=== PATIENT | female | born 1985 | race Caucasian/White ===

== ENCOUNTER → 2016-09-02 | Outpatient (REF) | payer BC ==
[~2016-09-02] MED LIST: IBUP80TA PO; LEVO175T PO; PERCOCET PO; SYNT137T7 PO; ZOLO100T PO; ZOLO50TA PO
[2016-09-02 17:24] LABS: THYROID PEROXIDASE ANTIBODY 177.5 U/ML (<60.0)
== END ==
LOC: M LAB REF 16:27
PROVIDERS: ATTEND Nurse Practitioner Family
DX: E03.9 Hypothyroidism, unspecified (principal)

== ENCOUNTER → 2019-09-11 | Outpatient (CLI) | payer BC ==
[~2019-09-11] MED LIST changes: +METHACHOLINE KIT (J7674) INH ONE; +OXYC1TAB23 PO; -PERCOCET PO
--- NOTE | 2019-09-11 09:23 | PFTRPT ---
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 Review Status: Not Reviewed Pre-Bronch Post-Bronch Pred Actual %Pred Actual %Chng SPIROMETRY FVC (L) 4.00 4.09 102 3.90 -4 FEV1 (L) 3.31 3.48 105 3.28 -5 FEV1/FVC (%) 83 85 102 84 -1 FEF 25% (L/sec) 5.80 6.41 110 6.08 -5 FEF 50% (L/sec) 4.37 4.81 109 4.11 -14 FEF 75% (L/sec) 1.79 1.95 108 1.28 -34 FEF 25-75% (L/sec) 3.43 4.09 119 3.26 -20 FEF Max (L/sec) 7.32 6.43 87 6.60 2 FIVC (L) 4.10 3.86 -5 FIF 50% (L/sec) 4.93 4.15 84 3.05 -26 FIF Max (L/sec) 4.44 3.17 -28 Expiratory Time (sec) 6.56 6.48 -1 Back Extrap Vol (L) 0.19 0.08 -56 Time To FEFmax (sec) 0.146 0.087 -40
== END ==
LOC: M CARPUL 08:11
PROVIDERS: ATTEND Internal Medicine
DX: R06.02 Shortness of breath (principal)
CPT/HCPCS: 94070; J7674

== ENCOUNTER → 2019-10-04 | Outpatient (REF) | payer BC ==
[~2019-10-04] MED LIST changes: -METHACHOLINE KIT (J7674) INH ONE
== END ==
LOC: M LAB REF 16:48
PROVIDERS: ATTEND Registered Nurse
DX: N39.0 Urinary tract infection, site not specified (principal)

== ENCOUNTER → 2019-11-23 | Outpatient (REF) | payer BC | LOC: M LAB REF 16:17 | PROVIDERS: ATTEND Internal Medicine | DX: N39.0 Urinary tract infection, site not specified (principal) ==

== ENCOUNTER → 2020-03-22 | Outpatient (REF) | payer BC | LOC: M LAB REF 07:15 | PROVIDERS: ATTEND Internal Medicine | DX: R30.0 Dysuria (principal) ==

== ENCOUNTER → 2020-06-12 | Outpatient (REF) | payer BC | LOC: M LAB REF 11:09 | PROVIDERS: ATTEND Internal Medicine | DX: M25.50 Pain in unspecified joint (principal) ==

== ENCOUNTER → 2020-09-02 | Outpatient (CLI) | payer BC ==
[2020-09-02 11:06] LABS: BASO % 0.7 % (0.0-1.0); EOS # 0.2 10^3/uL (0.0-0.5); EOS % 3.1 % (0.0-3.0); HEMATOCRIT 41.4 % (36.0-47.0); HEMOGLOBIN 13.7 g/dl (12.0-15.5); LYMPH # 1.3 10^3/uL (1.5-5.0); LYMPH % 22.4 % (24.0-44.0); MEAN CORPUSCULAR HEMOGLOBIN 29.8 pg (27.0-33.0); MEAN CORPUSCULAR HGB CONC 33.1 g/dl (32.0-36.5); MONO # 0.4 10^3/uL (0.0-0.8); MONO % 7.1 % (0.0-5.0); NEUTROPHILS # 3.9 10^3/uL (1.5-8.5); NEUTROPHILS % 66.2 % (36.0-66.0); PLATELET COUNT, AUTOMATED 218 10^3/uL (150-450); WHITE BLOOD COUNT 5.9 10^3/uL (4.0-10.0)
[2020-09-02 11:30] LABS: HEMOGLOBIN A1c 4.8 %
[2020-09-02 11:38] LABS: ALBUMIN 3.8 GM/DL (3.2-5.2); ALT/SGPT 30 U/L (12-78); BILIRUBIN,TOTAL 0.3 MG/DL (0.2-1.0); BLOOD UREA NITROGEN 15 MG/DL (7-18); CALCIUM LEVEL 9.2 MG/DL (8.5-10.1); CARBON DIOXIDE LEVEL 28 MEQ/L (21-32); CHLORIDE LEVEL 104 MEQ/L (98-107); CHOLESTEROL LEVEL 171 MG/DL (<200); CHOLESTEROL RISK RATIO 3.717 (<5); FERRITIN 50 NG/ML (8-252); FREE T4 1.22 NG/DL (0.76-1.46); GLOMERULAR FILTRATION RATE > 60.0 (>60); GLUCOSE, FASTING 105 MG/DL (70-100); HDL CHOLESTEROL 46 MG/DL (>40); IRON (FE) 74 UG/DL (50-170); LDL CHOLESTEROL 84 MG/DL (<100); NON-HDL-C 125 MG/DL; PERCENT SATURATION 23.9 % (13.2-45.0); POTASSIUM SERUM 4.5 MEQ/L (3.5-5.1); SODIUM LEVEL 140 MEQ/L (136-145); TOTAL IRON BINDING CAPACITY 309 UG/DL (250-450); TOTAL PROTEIN 6.9 GM/DL (6.4-8.2); TRIGLYCERIDES LEVEL 206 MG/DL (<150)
[2020-09-02 11:45] LABS: TOTAL 25(OH) VITAMIN D 14.4 NG/ML (30.0-100.0)
[2020-09-02 11:46] LABS: TOTAL T3 120.7 NG/DL (60.0-181.0); VITAMIN B12 LEVEL 605 PG/ML (247-911)
--- NOTE | 2020-09-02 18:05 | REP ---
INDICATION: MORBID (SEVERE) OBESITY, LAB 1ST EKG 2ND XR 3RD. COMPARISON: Comparison chest x-ray July 05, 2013. TECHNIQUE: Two views.. FINDINGS: The lungs are well inflated and free of infiltrate. The pleural angles are sharp. The heart size is normal. Pulmonary vasculature is not increased. No significant bony abnormality is seen. IMPRESSION: Negative chest x-ray. <Electronically signed by Yaakov Melendez > 09/02/20 [id number]
--- NOTE | 2020-09-03 16:08 | ECGEPIP ---
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
== END ==
LOC: M LAB 10:25
PROVIDERS: ATTEND Nurse Practitioner Women's Health
DX: E66.01 Morbid (severe) obesity due to excess calories (principal); J45.909 Unspecified asthma, uncomplicated; E03.9 Hypothyroidism, unspecified

== ENCOUNTER 2020-09-04 09:28 | Outpatient (RCR) | payer BC | END 2020-09-08 | LOC: M PT 09:28 | PROVIDERS: ATTEND Orthopaedic Surgery Sports Medicine | DX: M77.11 Lateral epicondylitis, right elbow (principal) ==

== ENCOUNTER 2020-10-02 14:30 | Outpatient (RCR) | payer BC | END 2020-10-06 | LOC: M PT 14:30 | PROVIDERS: ATTEND Orthopaedic Surgery Sports Medicine | DX: M77.11 Lateral epicondylitis, right elbow (principal) ==

== ENCOUNTER → 2020-12-07 | Outpatient (CLI) | payer BC ==
--- NOTE | 2020-12-08 16:31 | REPVR ---
PROCEDURE INFORMATION: Exam: MR Right Upper Extremity Joint Without Contrast; Elbow Exam date and time: 12/07/2020 3:36 PM Age: 35 years old Clinical indication: Right; Patient HX: RT elbow pain; Additional info: Lateral epicondylitis; RT elbow TECHNIQUE: Imaging protocol: MR of the Right upper extremity without contrast. Exam focused on the elbow. COMPARISON: No relevant prior studies available. FINDINGS: The examination is limited by motion degradation and the patient's body habitus. There is mild fraying at the humeral attachment of the radial collateral ligament. The ulnar collateral ligament is intact. There is moderate tendinopathy and partial-thickness tearing at the common extensor tendon origin with associated soft tissue swelling. The common flexor tendon is normal in appearance. The biceps and brachialis tendons are intact. There is no evidence of acute fracture or dislocation. Bone marrow signal is normal. Alignment is anatomic. There is a trace elbow joint effusion. The soft tissues are unremarkable. IMPRESSION: 1. Lateral epicondylitis, as described above. 2. Additional findings, as above. Electronically signed by: Jesse Shah On 12/08/2020 16:31:27 PM
== END ==
LOC: M RAD 14:23
PROVIDERS: ATTEND Orthopaedic Surgery Sports Medicine
DX: M77.11 Lateral epicondylitis, right elbow (principal)

== ENCOUNTER → 2021-05-26 | Outpatient (REF) | payer BC | LOC: M LAB REF 16:37 | PROVIDERS: ATTEND Internal Medicine | DX: Z98.84 Bariatric surgery status (principal) ==

== ENCOUNTER → 2021-10-07 | Outpatient (REF) | payer BC | LOC: M LAB REF 12:40 | PROVIDERS: ATTEND Internal Medicine | DX: F33.1 Major depressive disorder, recurrent, moderate (principal); Z98.84 Bariatric surgery status ==

== ENCOUNTER → 2023-11-23 | Outpatient (REF) | payer OTHER ==
[2023-11-23 14:37] LABS: FERRITIN 17.6 NG/ML (7.3-270.7)
== END ==
LOC: M LAB REF 13:27
PROVIDERS: ATTEND Internal Medicine
DX: Z98.84 Bariatric surgery status (principal)

== ENCOUNTER → 2023-11-26 | Outpatient (REF) | payer OTHER ==
[2023-11-26 18:27] LABS: AMORPHOUS SEDIMENT SMALL (NEGATIVE); APPEARANCE, URINE TURBID (CLEAR); BACTERIA, URINE AUTO NEGATIVE (NEGATIVE); BILIRUBIN, URINE AUTO NEGATIVE (NEGATIVE); BLOOD, URINE BLOOD 1+ (NEGATIVE); COLOR, URINE YELLOW (YELLOW); GLUCOSE, URINE (UA) AUTO NEGATIVE (NEGATIVE); KETONE, URINE AUTO NEGATIVE (NEGATIVE); LEUKOCYTE ESTERASE, URINE AUTO 3+ (NEGATIVE); MUCUS, URINE SMALL (NEGATIVE); NITRITE, URINE AUTO NEGATIVE (NEGATIVE); PROTEIN, URINE AUTO NEGATIVE (NEGATIVE); RBC, URINE AUTO 0 /HPF (0-3); SPECIFIC GRAVITY URINE AUTO 1.027 (1.002-1.035); SQUAMOUS EPITHELIAL CELL UR AU 7 /HPF (0-6); UROBILINOGEN, URINE AUTO 0.2 mg/dL (0.0-2.0); WBC, URINE AUTO 45 /HPF (0-3)
== END ==
LOC: M SMT 16:46
PROVIDERS: ATTEND Nurse Practitioner Family
DX: R30.0 Dysuria (principal)

== ENCOUNTER → 2023-12-10 | Outpatient (CLI) | payer OTHER | LOC: M RAD 15:57 | PROVIDERS: ATTEND Internal Medicine | DX: E03.9 Hypothyroidism, unspecified (principal) ==

== ENCOUNTER → 2024-05-26 | Outpatient (CLI) | payer OTHER ==
[2024-05-26 18:47] LABS: C REACTIVE PROTEIN QUANTITATIV < 0.40 MG/DL (<1.0)
[2024-05-27 11:02] LABS: THYROID PEROXIDASE ANTIBODY 136 U/ML (<60.0)
== END ==
LOC: M RAD 12:25
PROVIDERS: ATTEND Internal Medicine
DX: R22.32 Localized swelling, mass and lump, left upper limb (principal); E03.9 Hypothyroidism, unspecified

== ENCOUNTER → 2024-06-13 | Outpatient (REF) | payer OTHER | LOC: M LAB REF 12:17 | PROVIDERS: ATTEND Internal Medicine | DX: E66.01 Morbid (severe) obesity due to excess calories (principal) ==

== ENCOUNTER → 2024-07-13 | Outpatient (CLI) | payer OTHER | LOC: M SOG 07:53 | PROVIDERS: ATTEND Physician Assistant | DX: M25.522 Pain in left elbow (principal) ==

== ENCOUNTER → 2024-09-22 | Outpatient (REF) | payer OTHER, BC ==
[2024-09-22 15:30] LABS: APPEARANCE, URINE CLOUDY (CLEAR); BACTERIA, URINE AUTO 1+ (NEGATIVE); BILIRUBIN, URINE AUTO NEGATIVE (NEGATIVE); BLOOD, URINE BLOOD NEGATIVE (NEGATIVE); COLOR, URINE AMBER (YELLOW); GLUCOSE, URINE (UA) AUTO NEGATIVE (NEGATIVE); KETONE, URINE AUTO NEGATIVE (NEGATIVE); LEUKOCYTE ESTERASE, URINE AUTO 3+ (NEGATIVE); MUCUS, URINE SMALL (NEGATIVE); NITRITE, URINE AUTO POSITIVE (NEGATIVE); PROTEIN, URINE AUTO NEGATIVE (NEGATIVE); RBC, URINE AUTO 2 /HPF (0-3); SPECIFIC GRAVITY URINE AUTO 1.027 (1.002-1.035); SQUAMOUS EPITHELIAL CELL UR AU 14 /HPF (0-6); UROBILINOGEN, URINE AUTO 0.2 mg/dL (0.0-2.0); WBC, URINE AUTO 36 /HPF (0-3)
== END ==
LOC: M SMT 12:36
PROVIDERS: ATTEND Nurse Practitioner Family
DX: R35.0 Frequency of micturition (principal)